=== PATIENT | female | born 1955 | race African-American/Black ===

== ENCOUNTER → 2017-03-05 | Outpatient (CLI) | payer OTHER ==
[~2017-03-05] MED LIST: APIDRA SOL100 UNIT/1 SUBQ; ASPIRIN81 M2 PO; FISH OIL 1,2001 EAC2 PO; IRON325 ( 652 PO; LEVEMIR SUBQ; METFORMIN PO; METOPROLOL SUCC25 MG PO; NORVASC10 MG PO; SYNTHROID PO; VIT B-12 PO; WOMEN'S DAILY1 EACH PO
--- NOTE | ~2017-03-05 | EKG ---
PATIENT: ALF RIOJAS UNIT #: [id number] Ventricular Rate: 63 BPM Atrial Rate: 63 BPM P-R Interval: 170 ms QRS Duration: 76 ms Q-T Interval: 408 ms QTC Calculation(Bezet): 417 ms P [place]: 27 degrees Calculated R [place]: 9 degrees Calculated T [place]: 35 degrees Diagnosis Line: Normal sinus rhythm Diagnosis Line: Normal ECG Diagnosis Line: When compared with ECG of 17-DEC-2015 05:11, Diagnosis Line: No significant change was found Diagnosis Line: Confirmed by KALANI TILLMAN MD ([id number]) on Diagnosis Line: 03/06/2017 7:23:42 AM INTERPRETING YOSELYN GUPTA
== END | disposition home or self-care (01) ==
LOC: CRAD 10:58
DX: R07.9 Chest pain, unspecified (principal)
CPT/HCPCS: 93005